=== PATIENT | male | born 1980 | race Caucasian/White ===

== ENCOUNTER → 2018-09-02 | Outpatient (CLI) | payer OTHER ==
--- NOTE | 2018-09-02 13:53 | 2DMMODE ---
[facility] [email or web address] [address] 2 D/M-MODE ECHOCARDIOGRAM Name: JENIFFERHENRY Room #: REG [facility]#: [id number] ������������� Admission: 09/02/18 ������������� Attend Phys: David Rivas Discharge: ��� ������������� ��� Date of : 78 Date of Service: 09/02/18 1353 �� Report #: [id number] �������� ��������������������������������������������[id number] THIS REPORT FOR: //name// APPROVED REPORT Study performed: 09/02/2018 13:11:52 EXAM: Comprehensive 2D, Doppler, and color-flow Echocardiogram Patient Location: Out-Patient Status: routine BSA: 2.08 HR: 70 bpm BP: 116/70 mmHg Rhythm: NSR Other Information Study Quality: Adequate/thin body habitus. Indications Palpitations 2D Dimensions RVDd: 36.38 mm IVSd: 8.64 (7-11mm) LVOT Diam: 23.02 (18-24mm) LVDd: 46.11 mm PWd: 8.77 (7-11mm) Ascending Ao: 29.39 (22-36mm) LVDs: 29.42 (25-40mm) Aortic Root: 35.05 mm Volumes Left Atrial Volume (Systole) Single Plane 4CH: 26.57 mL Single Plane 2CH: 54.96 mL LA ESV Index: 20.00 mL/m2 Aortic Valve AoV Peak Ranjith.: 1.10 m/s AO Peak Gr.: 4.81 mmHg LVOT Max P.22 mmHg LVOT Max V: 1.03 m/s JULIA Vmax: 3.90 cm2 Mitral Valve E/A Ratio: 1.4 MV Decel. Time: 148.16 ms [facility] [address] [place] [address] 2 D/M-MODE ECHOCARDIOGRAM Name: HENRY SWIFT Room #: REG [facility]#: [id number] ������������� Admission: 09/02/18 ������������� Attend Phys: David Rivas Discharge: ��� ������������� ��� Date of : 78 Date of Service: 09/02/18 1353 �� Report #: [id number] �������� ��������������������������������������������[id number] MV E Max Ranjith.: 0.78 m/s MV A Ranjith.: 0.57 m/s MV PHT: 42.97 ms IVRT: 87.66 ms Pulmonary Valve PV Peak Ranjith.: 1.03 m/s PV Peak Gr.: 4.27 mmHg Pulmonary Vein P Vein S: 0.66 m/s P Vein D: 0.63 m/s P Vein S/D Ratio: 1.05 Tricuspid Valve TR Peak Ranjith.: 1.99 m/s RAP Estimate: 5.00 mmHg TR Peak Gr.: 15.86 mmHg PA Pressure: 21.00 mmHg Left Ventricle The left ventricle is normal size. There is normal LV segmental wall motion. There is normal left ventricular wall thickness. Left ventricular systolic function is normal. LVEF is 60%. The left ventricular diastolic function is normal. Right Ventricle The right ventricle is normal size. The right ventricular systolic function is normal. Atria The left atrium size is normal. The right atrium size is normal. Aortic Valve Aortic valve is trileaflet. No aortic regurgitation is present. There is no aortic valvular stenosis. Mitral Valve The mitral valve is normal in structure. There is no mitral valve regurgitation noted. No evidence of mitral valve stenosis. Tricuspid Valve The tricuspid valve is normal in structure. Trace tricuspid regurgitation. Estimated PAP is 20-25mmHg. Pulmonic Valve The pulmonary valve is normal in structure. Mild pulmonic [facility] [address] [place] [address] 2 D/M-MODE ECHOCARDIOGRAM Name: JENIFFERHENRY Room #: REG [facility]#: [id number] ������������� Admission: 09/02/18 ������������� Attend Phys: David Rivas Discharge: ��� ������������� ��� Date of : 78 Date of Service: 09/02/18 1353 �� Report #: [id number] �������� ��������������������������������������������[id number] regurgitation. Great Vessels The aortic root is normal in size. The ascending aorta is normal in size. IVC is normal in size and collapses >50% with inspiration. Pericardium There is no pericardial effusion. <Conclusion> The left ventricle is normal size. There is normal left ventricular wall thickness. Left ventricular systolic function is normal. The left ventricular diastolic function is normal. The right ventricle is normal size. The left atrium size is normal. Aortic valve is trileaflet. The mitral valve is normal in structure. Trace tricuspid regurgitation. Estimated PAP is 20-25mmHg. ��������������������������������������������� <ELECTRONICALLY SIGNED> ���������������������������������������� By: Chase Gunter MD ��������������������������������������������� 09/02/18 1353 1353 135 Chase Gunter MD /INF
== END ==
LOC: CV 13:04
DX: I37.1 Nonrheumatic pulmonary valve insufficiency (principal)

== ENCOUNTER → 2019-07-29 | Outpatient (CLI) | payer OTHER | LOC: ULTRA 14:44 | DX: N43.3 Hydrocele, unspecified (principal) ==